=== PATIENT | male | born 1985 | race Caucasian/White ===

== ENCOUNTER 2019-04-22 20:26 | Emergency (ER) | payer MEDICAID ==
[~2019-04-22] VITALS: Ht 180.3 cm; Wt 95.3 kg
[2019-04-22 20:36] VITALS: BP_SYST 166
[2019-04-22 20:48] VITALS: BP_SYST 166
== END 2019-04-22 20:48 ==
LOC: EDSEX 20:26 → SED 20:26
DX: F19.10 Other psychoactive substance abuse, uncomplicated (principal); J45.909 Unspecified asthma, uncomplicated
CPT/HCPCS: 99283

== ENCOUNTER 2019-08-28 12:49 | Emergency (ER) | payer MEDICAID ==
[~2019-08-28] VITALS: Ht 177.8 cm; Wt 93.0 kg
--- NOTE | 2019-08-28 12:55 | NUR ---
Patient to ER bed h1 to gown for evaluation. Side rails up.
--- NOTE | 2019-08-28 12:56 | NUR ---
Dr. myers at bedside. Pt refused evaluation.
--- NOTE | 2019-08-28 13:00 | NUR ---
pt discharged to police custody.
== END 2019-08-28 13:00 ==
LOC: SED 12:49
DX: Z02.89 Encounter for other administrative examinations (principal); J45.909 Unspecified asthma, uncomplicated
CPT/HCPCS: 99283

== ENCOUNTER 2019-08-28 15:33 | Emergency (ER) | payer MEDICAID ==
[~2019-08-28] VITALS: Ht 180.3 cm; Wt 86.2 kg
--- NOTE | 2019-08-28 15:33 | NUR ---
Patient to ER bed h1 to gown for evaluation. Side rails up.pt in police custody
[2019-08-28 15:34] VITALS: BP_SYST 164
--- NOTE | 2019-08-28 15:34 | NUR ---
Pt bib LASD for asthma exacerbation.Pt seen in ED previously for Ok to Book and refused all evaluation including VS. Pt has no acute distress noted. VSS.
--- NOTE | 2019-08-28 15:51 | NUR ---
EKG performed at by [facility]UCKY. Physician given copy of EKG for review.
[2019-08-28 16:00] VITALS: BP_SYST 164
--- NOTE | 2019-08-28 16:00 | NUR ---
Patient given written and verbal discharge instructions and verbalizes understanding. ER MD discussed with patient the results and treatment provided. Patient in stable condition. ID arm band removed. no Rx given. Patient educated on pain management and to follow up with PMD. Pain Scale 0 Opportunity for questions provided and answered. Medication side effect fact sheet provided.
== END 2019-08-28 16:00 ==
LOC: SED 15:33
DX: Z02.89 Encounter for other administrative examinations (principal); J45.909 Unspecified asthma, uncomplicated
CPT/HCPCS: 93005; 99283

== ENCOUNTER 2020-05-12 21:03 | Emergency (ER) | payer MEDICAID ==
[~2020-05-12] VITALS: Ht 177.8 cm; Wt 113.4 kg
[2020-05-12 21:03] VITALS: BP_SYST 133
[2020-05-12] MEDS ORDERED: NACL 0.9% 2,000 ML IV ONE (21:15)
[2020-05-12] MEDS ORDERED: LORazepam 2 MG/ML VIAL IM ONE (21:15)
[2020-05-12 22:12] LABS: BASOPHILS # (AUTO) 0.1 K/uL (0.0-0.2); BASOPHILS % (AUTO) 0.8 % (0.0-2.0); EOSINOPHILS % (AUTO) 0.3 % (0.0-4.0); HEMATOCRIT 41.3 % (36-54); HEMOGLOBIN 14.2 g/dL (14.0-18.0); LYMPHOCYTES # (AUTO) 0.9 K/uL (1.0-5.5); LYMPHOCYTES % (AUTO) 6.9 % (20.5-51.5); MEAN CORPUSCULAR HEMOGLOBIN 30 pg (27-31); MEAN CORPUSCULAR HGB CONC 34 % (32-36); MEAN CORPUSCULAR VOLUME 87 fL (79.0-98.0); MONOCYTES # (AUTO) 0.7 K/uL (0.0-1.0); NEUTROPHILS # (AUTO) 11.6 K/uL (1.8-7.7); PLATELET COUNT (AUTO) 270 K/uL (130-430); RED BLOOD CELL COUNT(AUTO) 4.76 MIL/uL (4.2-6.2); RED CELL DISTRIBUTION WIDTH 14.7 % (9.0-15.0); WHITE BLOOD COUNT (AUTO) 13.3 K/uL (4.8-10.8)
[2020-05-12 22:21] LABS: BILIRUBIN,URINE NEGATIVE (NEGATIVE); BLOOD, URINE 1+ (NEGATIVE); CLARITY/URINE CLEAR (CLEAR); COLOR,URINE YELLOW (YELLOW); GLUCOSE,URINE NEGATIVE (NEGATIVE); KETONES,URINE TRACE (NEGATIVE); LEUKOCYTE ESTERASE ,URINE NEGATIVE (NEGATIVE); NITRITE, URINE NEGATIVE (NEGATIVE); PROTEIN URINE NEGATIVE (NEGATIVE); UROBILINOGEN,URINE 0.2 (0.2-1.0)
[2020-05-12 22:34] LABS: BACTERIA,URINE FEW /HPF (None Seen); WBC,URINE 0-3 /HPF (0-3)
[2020-05-12 22:37] LABS: BARBITURATE, URINE NEGATIVE (NEG <=200); BENZODIAZEPINE, URINE NEGATIVE (NEG <=150); CANNABINOID, URINE POSITIVE (NEG <=50); COCAINE, URINE NEGATIVE (NEG <=150); METHAMPHETAMINES SCREEN,URINE POSITIVE (NEG <=500); OPIATE, URINE NEGATIVE (NEG <=100); PHENCYCLIDINE SCREEN,URINE NEGATIVE (NEG <=25); UR TRICYCLIC ANTIDEPRESSANTS NEGATIVE (NEG <=300); URINE AMPHETAMINE POSITIVE (NEG <=500); URINE METHADONE NEGATIVE (NEG <=200); URINE OXYCODONE SCREEN NEGATIVE (NEG <=100); URINE PROPOXYPHENE SCREEN NEGATIVE (NEG <=300)
[2020-05-12 23:00] LABS: CALCIUM 9.5 mg/dL (8.4-11.0); CREATININE 1.57 mg/dL (0.55-1.30); POTASSIUM 3.4 mmol/L (3.5-5.1)
[2020-05-12 23:06] LABS: ALBUMIN 3.9 g/dL (3.4-4.8); TOTAL BILIRUBIN 0.8 mg/dL (0.0-1.0)
[2020-05-13] MEDS ORDERED: LORazepam 2 MG/ML VIAL IVP ONE
[2020-05-13 09:53] VITALS: BP_SYST 133
== END 2020-05-13 09:54 | disposition home or self-care (01) ==
LOC: SED 21:03
DX: F15.129 Other stimulant abuse with intoxication, unspecified (principal); J45.909 Unspecified asthma, uncomplicated
CPT/HCPCS: 36415; 71045; 74018; 80053; 80307; 81000; 82550; 83880; 84484; 85025; 93005; 96372; 96374; 99285; G0482; J2060; J7030; 96360

== ENCOUNTER 2020-06-07 14:27 | Emergency (ER) | payer MEDICAID ==
[~2020-06-07] VITALS: Ht 180.3 cm; Wt 101.2 kg
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
[2020-06-07 14:36] VITALS: BP_SYST 163
--- NOTE | 2020-06-07 14:40 | NUR ---
Patient to ER bed 2 to gown for evaluation. Side rails up. Report given to MARIALUISA Rivera.
--- NOTE | 2020-06-07 14:53 | NUR ---
Patient refused blood draw.
[2020-06-07 14:54] VITALS: BP_SYST 163
[2020-06-07] MEDS ORDERED: LORazepam 2 MG/ML VIAL IVP ONE (15:00)
[2020-06-07] MEDS ORDERED: NACL 0.9% 1,000 ML IV ONE (15:00)
== END 2020-06-07 14:54 | disposition left against medical advice (07) ==
LOC: SED 14:27
DX: R07.89 Other chest pain (principal); J45.909 Unspecified asthma, uncomplicated; Z53.21 Procedure and treatment not carried out due to patient leaving prior to being seen by health care provider

== ENCOUNTER 2020-07-02 23:51 | Emergency (ER) | payer MEDICAID ==
[~2020-07-02] VITALS: Ht 180.3 cm; Wt 95.3 kg
[2020-07-03] VITALS: BP_SYST 134
[2020-07-03] MEDS ORDERED: KETOROLAC TROMETHAMINE 60 MG/2 ML VIAL IM ONE (00:30)
[2020-07-03 00:51] VITALS: BP_SYST 128
== END 2020-07-03 00:51 | disposition home or self-care (01) ==
LOC: SED 23:51
DX: Z48.00 Encounter for change or removal of nonsurgical wound dressing (principal); F12.90 Cannabis use, unspecified, uncomplicated; J45.909 Unspecified asthma, uncomplicated; Z71.6 Tobacco abuse counseling
CPT/HCPCS: 99281

== ENCOUNTER 2020-10-19 12:39 | Emergency (ER) | payer MEDICAID ==
[~2020-10-19] VITALS: Ht 170.2 cm; Wt 99.8 kg
[2020-10-19 13:00] VITALS: BP_SYST 124
--- NOTE | 2020-10-19 13:00 | NUR ---
Patient to ER bed 5 to gown for evaluation. Side rails up
--- NOTE | 2020-10-19 13:05 | NUR ---
Pt walked in to ER with c/o anxiety and heart palpitations since this morning. Reports using meth 1 day ago and is hearing voices and thinks he's going to . V/S stable.
--- NOTE | 2020-10-19 13:10 | NUR ---
ER Dr. García at bedside examining patient.
[2020-10-19] MEDS ORDERED: ceFAZolin SODIUM 1 GM VIAL IM ONE (13:30)
[2020-10-19] MEDS ORDERED: LORazepam 2 MG/ML VIAL IM ONE (13:30)
[2020-10-19] MEDS ORDERED: LORA-259 PO (15:20)
--- NOTE | 2020-10-19 18:39 | NUR ---
EASILY AROUSED, AAOX3, CLEAR MENTATION AND SPEECH, SKIN WARM AND DRY, DENIES CP/SOB. VSS
[2020-10-19 18:50] VITALS: BP_SYST 111
--- NOTE | 2020-10-19 18:51 | NUR ---
Patient given written and verbal discharge instructions and verbalizes understanding. ER MD discussed with patient the results and treatment provided. Patient in stable condition. ID arm band removed. No prescriptions given. Patient educated on pain management and to follow up with PMD. Pain Scale 0. Opportunity for questions provided and answered. Medication side effect fact sheet provided.
== END 2020-10-19 18:51 | disposition home or self-care (01) ==
LOC: SED 12:39
DX: F15.10 Other stimulant abuse, uncomplicated (principal); J45.909 Unspecified asthma, uncomplicated
CPT/HCPCS: 96372; 99284; J0690; J2060; 93005

== ENCOUNTER 2021-10-20 19:56 | Emergency (ER) | payer MEDICAID ==
[~2021-10-20] VITALS: Ht 180.3 cm; Wt 99.8 kg
[~2021-10-20 19:56] MED LIST: LORA-259 PO
[2021-10-20 20:00] VITALS: BP_SYST 151
--- NOTE | 2021-10-20 20:05 | NUR ---
MOVED INTO ED 1 AT THIS TIME. REPORTS FEELING THOUGH THERE IS A FOREIGN BODY IN RIGHT NOSTRIL. AIRWAY PATENT WITH NO OBVIOUS OBSTRUCTION ON INSPECTION.
--- NOTE | 2021-10-20 20:10 | NUR ---
PATIENT HAS NO ACUTE AIRWAY COMPROMISE, NO OTHER COMPALINTS OR CONCERNS OTHER THAN STATING HE FEELS OBSTRUCTION FOR THE PAST FEW DAYS. REPORTS SLEEPING ON FLOOR OF HOME RECENTLY
--- NOTE | 2021-10-20 20:40 | NUR ---
ER AT BEDSIDE
[2021-10-20 21:10] VITALS: BP_SYST 151
--- NOTE | 2021-10-20 21:10 | NUR ---
Patient given written and verbal discharge instructions and verbalizes understanding. ER MD discussed with patient the results and treatment provided. Patient in stable condition. ID arm band removed. Patient educated on pain management and to follow up with PMD. Pain Scale 0/10 Opportunity for questions provided and answered
== END 2021-10-20 21:10 | disposition home or self-care (01) ==
LOC: SED 19:56
DX: J34.2 Deviated nasal septum (principal)
CPT/HCPCS: 99281

== ENCOUNTER 2021-10-27 03:59 | Emergency (ER) | payer MEDICAID ==
[~2021-10-27] VITALS: Ht 180.3 cm; Wt 117.9 kg
[2021-10-27 04:10] VITALS: BP_SYST 132
[2021-10-27] MEDS ORDERED: DIPHENHYDRAMINE HCL 50 MG CAPSULE PO ONE (04:45)
[2021-10-27] MEDS ORDERED: LORazepam 1 MG TABLET PO ONE ×2 (04:45→05:45)
[2021-10-27] MEDS ORDERED: HALOPERIDOL 5 MG TABLET (HALDOL) PO ONE (05:45)
[2021-10-27 06:05] VITALS: BP_SYST 132
== END 2021-10-27 06:05 | disposition left against medical advice (07) ==
LOC: SED 03:59
DX: R06.00 Dyspnea, unspecified (principal); Z53.21 Procedure and treatment not carried out due to patient leaving prior to being seen by health care provider
CPT/HCPCS: Q0163

== ENCOUNTER 2022-05-06 20:37 | Emergency (ER) | payer MEDICAID ==
[~2022-05-06] VITALS: Ht 167.6 cm; Wt 90.7 kg
[2022-05-06 20:50] VITALS: BP_SYST 118
--- NOTE | 2022-05-06 20:53 | NUR ---
BIBA D/T ALOC POSS OD WITH ELICIT DRUGS, PER MEDIC REPORT PT FOUND WITH PINPOINT PUPILS ON FIELD AND NARCAN GIVEN.
[2022-05-06] MEDS ORDERED: LORazepam 2 MG/ML VIAL IVP ONE (21:00)
[2022-05-06] MEDS ORDERED: HALOPERIDOL LACTATE 5 MG/ML VIAL IVP ONE ×2 (21:00→22:15)
[2022-05-06] MEDS ORDERED: DIPHENHYDRAMINE INJ 50 MG/ML VIAL IVP ONE ×2 (21:00→21:45)
[2022-05-06] MEDS ORDERED: NACL 0.9% 1,000 ML IV ONE (21:00)
--- NOTE | 2022-05-06 21:00 | NUR ---
pt is very agitated, is able to converse and is uncooperative with staff Addendum: 05/07/22 at 0013 by [email or web address] UNABLE TO CONVERSE
[2022-05-06] MEDS ORDERED: LORazepam 2 MG/ML VIAL ONE (21:03)
[2022-05-06] MEDS ORDERED: HALOPERIDOL LACTATE 5 MG/ML VIAL ONE (21:04)
[2022-05-06] MEDS ORDERED: DIPHENHYDRAMINE INJ 50 MG/ML VIAL ONE (21:36)
--- NOTE | 2022-05-06 22:00 | NUR ---
patient is extremely agitated and restless. pt will not stop screaming nonsense
[2022-05-06 22:19] LABS: HEMOGLOBIN 15.2 g/dL (14.0-18.0)
[2022-05-06 22:23] LABS: BASOPHILS # (AUTO) 0.1 K/uL (0.0-0.2); BASOPHILS % (AUTO) 1.1 % (0.0-2.0); EOSINOPHILS # (AUTO) 0.3 K/uL (0.0-0.4); EOSINOPHILS % (AUTO) 2.5 % (0.0-4.0); HEMATOCRIT 44.4 % (36-54); LYMPHOCYTES # (AUTO) 2.2 K/uL (1.0-5.5); LYMPHOCYTES % (AUTO) 16.6 % (20.5-51.5); MEAN CORPUSCULAR HEMOGLOBIN 29 pg (27-31); MEAN CORPUSCULAR HGB CONC 34 % (32-36); MEAN CORPUSCULAR VOLUME 86 fL (79.0-98.0); MONOCYTES # (AUTO) 0.7 K/uL (0.0-1.0); MONOCYTES % (AUTO) 5.4 % (1.7-9.3); NEUTROPHILS % (AUTO) 74.4 % (40.0-70.0); PLATELET COUNT (AUTO) 331 K/uL (130-430); RED BLOOD CELL COUNT(AUTO) 5.19 MIL/uL (4.2-6.2); RED CELL DISTRIBUTION WIDTH 14.6 % (9.0-15.0); WHITE BLOOD COUNT (AUTO) 13.4 K/uL (4.8-10.8)
[2022-05-06 22:28] LABS: CALCIUM 10.1 mg/dL (8.4-11.0); CREATININE 1.38 mg/dL (0.55-1.30); POTASSIUM 3.7 mmol/L (3.5-5.1)
[2022-05-06 22:33] LABS: TOTAL BILIRUBIN 0.2 mg/dL (0.0-1.0)
[2022-05-06 22:33] LABS: BARBITURATE, URINE NEGATIVE (NEG <=200); BENZODIAZEPINE, URINE NEGATIVE (NEG <=150); CANNABINOID, URINE NEGATIVE (NEG <=50); COCAINE, URINE NEGATIVE (NEG <=150); METHAMPHETAMINES SCREEN,URINE POSITIVE (NEG <=500); OPIATE, URINE NEGATIVE (NEG <=100); PHENCYCLIDINE SCREEN,URINE POSITIVE (NEG <=25); UR TRICYCLIC ANTIDEPRESSANTS NEGATIVE (NEG <=300); URINE AMPHETAMINE POSITIVE (NEG <=500); URINE METHADONE NEGATIVE (NEG <=200); URINE OXYCODONE SCREEN NEGATIVE (NEG <=100); URINE PROPOXYPHENE SCREEN NEGATIVE (NEG <=300)
--- NOTE | 2022-05-06 23:00 | NUR ---
pt is still very agitated and is unable to converse with staff
--- NOTE | 2022-05-07 00:21 | NUR ---
PT SEEM TO BE MORE RELAXED RESTING IN BED AND NO LONGER AGGITATED AT THE MOMENT.
--- NOTE | 2022-05-07 02:18 | NUR ---
PT RESTING IN BED. VSS. VISIBLE RISE AND FALL OF CHEST.
[2022-05-07 02:33] LABS: CKMB RELATIVE INDEX 0.2 (0.0-2.9); CREATINE KINASE MB 0.8 ng/mL (0-3.6)
--- NOTE | 2022-05-07 04:26 | NUR ---
PT RESTING IN BED COMFORTABLY, VISIBLE RISE AND FALL OF CHEST. VSS
[2022-05-07 06:25] VITALS: BP_SYST 125
--- NOTE | 2022-05-07 06:27 | NUR ---
Patient given written and verbal discharge instructions and verbalizes understanding. ER MD discussed with patient the results and treatment provided. Patient in stable condition. ID arm band removed. IV catheter removed intact and dressing applied, no active bleeding. Rx of given. Patient educated on pain management and to follow up with PMD. Pain Scale 0. Opportunity for questions provided and answered. Medication side effect fact sheet provided.
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
== END 2022-05-07 06:27 | disposition home or self-care (01) ==
LOC: SED 20:37
DX: R41.82 Altered mental status, unspecified (principal); F19.10 Other psychoactive substance abuse, uncomplicated; J45.909 Unspecified asthma, uncomplicated; F12.90 Cannabis use, unspecified, uncomplicated; Z79.899 Other long term (current) drug therapy
CPT/HCPCS: 99285; 96374; 96361; 96375; 80307; 80053; 82550; 82553; 85025; 36415; 96372; G0482; J1200; J1630; J2060; J7030

== ENCOUNTER 2022-07-18 02:37 | Emergency (ER) | payer MEDICAID ==
[2022-07-18 03:04] VITALS: BP_SYST 147
== END 2022-07-18 05:40 | disposition left against medical advice (07) ==
LOC: SED 02:37
DX: F15.10 Other stimulant abuse, uncomplicated (principal); R44.0 Auditory hallucinations; Z53.21 Procedure and treatment not carried out due to patient leaving prior to being seen by health care provider

== ENCOUNTER 2023-07-20 23:34 | Emergency (ER) | payer MEDICAID ==
[~2023-07-20] VITALS: Ht 180.3 cm; Wt 99.8 kg
[2023-07-20 23:47] VITALS: BP_SYST 132; PULSE 100; RESP 19; TEMP 97.6; O2SAT 96
== END 2023-07-20 23:51 | disposition home or self-care (01) ==
LOC: SED 23:34
DX: S00.412A Abrasion of left ear, initial encounter (principal); J45.909 Unspecified asthma, uncomplicated; Z79.899 Other long term (current) drug therapy; X58.XXXA Exposure to other specified factors, initial encounter; Y93.89 Activity, other specified; Y92.89 Other specified places as the place of occurrence of the external cause; Y99.8 Other external cause status
CPT/HCPCS: 99281